=== PATIENT | male | born 1970 | race Caucasian/White ===

== ENCOUNTER → 2016-08-28 11:56 | Outpatient (CLI) | payer BC | END | disposition home or self-care (01) | LOC: D.MRI 11:30 | DX: S43.92XA Sprain of unspecified parts of left shoulder girdle, initial encounter (principal) ==

== ENCOUNTER 2017-05-01 14:48 | Emergency (ER) | payer BC | END 2017-05-01 16:07 | disposition home or self-care (01) | LOC: D.ER 14:48 | DX: K29.00 Acute gastritis without bleeding (principal); F17.200 Nicotine dependence, unspecified, uncomplicated ==

== ENCOUNTER → 2018-08-16 10:46 | Outpatient (CLI) | payer BC | END | disposition home or self-care (01) | LOC: D.CT 10:46 | DX: F17.200 Nicotine dependence, unspecified, uncomplicated (principal) ==